=== PATIENT | female | born 1990 | race African-American/Black ===

== ENCOUNTER 2025-06-16 21:06 | Emergency (ER) | payer SELFPAY ==
[~2025-06-16 21:06] MED LIST: Iopamidol 300 61% 100 ML VIAL FS ONE
[2025-06-16 22:01] LABS: BHCG - Serum Negative (NEGATIVE); Pregs Control Background? CLEAR/WHITE (CLR/WHITE); Pregs Control Bar Appear? YES (CONTROL BAR)
[2025-06-16] MEDS ORDERED: Ondansetron PF 4 MG/2 ML Vial ONE (22:03)
[2025-06-16] MEDS ORDERED: Ketorolac Tromethamine 30 MG (1 mL) VIAL ONE (22:03)
[2025-06-16] MEDS ORDERED: Pantoprazole 40 MG VIAL ONE (22:03)
[2025-06-16 22:05] LABS: ALT (SGPT) 16 U/L (Less than 34); AST (SGOT) 28 U/L (11-34); Albumin 3.1 g/dL (3.1-4.5); Alkaline Phosphatase 40 U/L (40-110); Anion Gap 11 mmol/L (10-20); BUN (Urea Nitrogen) 8 mg/dL (7.0-18.7); Bilirubin, Total 0.2 mg/dL (0.3-1.2); Calc. Creatinine Clearance 0 mL/min (70-130); Calcium 8.2 mg/dL (7.8-10.44); Carbon Dioxide 29 mmol/L (22-29); Chloride 106 mmol/L (98-107); Globulin 2.7 g/dL (2.4-3.5); Glucose 108 mg/dL (70-105); Lipase 64 U/L (8-78); Potassium 2.8 mmol/L (3.5-5.1); Sodium 143 mmol/L (136-145)
[2025-06-16 22:15] LABS: Hematocrit 34.7 % (34.9-44.5); Hemoglobin 10.9 g/dL (12.0-15.5); Mean Corpuscular Hemoglobin 23.0 pg (27.0-33.0); Mean Corpuscular Volume 73.2 fL (81.6-98.3); Platelet Count 193 10x3/uL (150-450); Red Blood Cell (RBC) Count 4.74 10x6/uL (3.90-5.03); White Blood Cell (WBC) Count 9.75 10x3/uL (3.5-10.5)
[2025-06-16 22:34] LABS: #Basophils Less than 0.03 10x3/uL (0.0-0.2); #Eosinophils 0.17 10x3/uL (0.0-0.5); #Monocytes 0.69 10x3/uL (0.0-1.1); #Neutrophils 5.33 10x3/uL (1.5-8.4); %Basophils 0.2 % (0.0-2.0); %Eosinophils 1.7 % (0.0-6.0); %Lymphocytes 36.1 % (18.0-47.0); %Monocytes 7.1 % (0.0-10.0); %Neutrophils 54.7 % (40.0-75.0); Microcytosis SLIGHT = 6-15 cells (100X) (0-5/hpf); Platelet Adequacy Comment Appears Adequate; Polychromasia SLIGHT = 2-3 cells (100X) (0-2/hpf); Spherocytes SLIGHT = 1-5 cells (100X) (None Seen)
[2025-06-16 22:52] LABS: Glucose, Urine (Dipstick) Normal (Negative); Leukocyte Negative (Negative); Protein, Urine (Dipstick) 15 mg/dl (Neg-Trace); Specific Gravity, Urine 1.010 (1.005-1.030)
[2025-06-16 23:00] LABS: Bacteria/HPF 2+ HPF (None Seen); CAUTI Indications for Culture Pelvic or flank pain; RBC/HPF 0-3 HPF (0-3); WBC/HPF 0-3 HPF (0-3)
[2025-06-16 23:02] LABS: Urine Culture Reflex No No
== END 2025-06-17 00:10 | disposition home or self-care (01) ==
LOC: CSHERS 21:06
DX: R10.9 Unspecified abdominal pain (principal); E87.6 Hypokalemia
CPT/HCPCS: 36415; 74177; 76856; 80053; 81001; 83690; 84703; 85025; 87086; 96374; 96375; J1885; J2405; J2470; Q9967